=== PATIENT | female | born 1950 | race Caucasian/White ===

== ENCOUNTER → 2016-11-29 | Outpatient (CLI) | payer MEDICARE, OTHER ==
[~2016-11-29] MED LIST: ASCO1TAB13 PO; CALC600T12 PO; CETI10CA19 PO; CHOL200026 PO; FISH1CAP2 PO; GUAI600T PO; HORMONE REPLACEMENT PO
== END ==
LOC: WC.BC 13:32
DX: Z12.31 Encounter for screening mammogram for malignant neoplasm of breast (principal); M85.88 Other specified disorders of bone density and structure, other site; E55.9 Vitamin D deficiency, unspecified
CPT/HCPCS: 77063; 77080; G0202